=== PATIENT | male | born 1990 | race Native Hawaiian/Other Pacific Islander ===

== ENCOUNTER 2020-05-05 18:01 | Emergency (ER) | payer OTHER ==
[~2020-05-05] VITALS: Ht 172.7 cm; Wt 97.5 kg
[2020-05-05] MEDS ORDERED: OMEPRAZOLE 20 M20 M1 PO (19:11)
[2020-05-05] MEDS ORDERED: SUPER THERAVIT1 EACH PO (19:11)
[2020-05-05] MEDS ORDERED: CARAFATE 1 GM TA1 GM PO (19:12)
[2020-05-05] MEDS ORDERED: PREDNISONE 10 M10 MG PO (19:47)
[2020-05-05 20:12] VITALS: BP 133/85
== END 2020-05-05 20:13 | disposition home or self-care (01) ==
LOC: ER 18:01
DX: L25.1 Unspecified contact dermatitis due to drugs in contact with skin (principal); T49.8X5A Adverse effect of other topical agents, initial encounter; Z79.899 Other long term (current) drug therapy; Y92.89 Other specified places as the place of occurrence of the external cause

== ENCOUNTER 2020-10-01 02:33 | Emergency (ER) | payer OTHER ==
[~2020-10-01] VITALS: Ht 172.7 cm; Wt 97.5 kg
[~2020-10-01 02:33] MED LIST: CARAFATE 1 GM TA1 GM PO; OMEPRAZOLE 20 M20 M1 PO; PREDNISONE 10 M10 MG PO; SUPER THERAVIT1 EACH PO
[2020-10-01] MEDS ORDERED: FAMOTIDINE 40 M40 M1 PO (02:57)
[2020-10-01] MEDS ORDERED: VISTARIL 25 MG25 M1 PO (02:59)
[2020-10-01] MEDS ORDERED: MECLIZINE HCL25 MG PO (05:41)
[2020-10-01] MEDS ORDERED: KLONOPIN0.5 MG PO (05:41)
[2020-10-01 06:14] VITALS: BP 114/77
== END 2020-10-01 06:17 | disposition home or self-care (01) ==
LOC: ER 02:33
DX: J02.9 Acute pharyngitis, unspecified (principal); Z79.899 Other long term (current) drug therapy